=== PATIENT | female | born 1955 | race Caucasian/White ===

== ENCOUNTER 2024-12-17 15:30 | Outpatient (CLI) | payer OTHER | END 2024-12-17 23:59 | disposition home or self-care (01) | LOC: RAD 15:30 | PROVIDERS: ATTEND Physician Assistant | DX: M47.817 Spondylosis without myelopathy or radiculopathy, lumbosacral region (principal); M43.17 Spondylolisthesis, lumbosacral region; I70.0 Atherosclerosis of aorta | CPT/HCPCS: 72100 ==